=== PATIENT | male | born 1950 | race Caucasian/White ===

== ENCOUNTER → 2018-06-13 | Outpatient (CLI) | payer MEDICARE, OTHER ==
[2018-06-13 15:02] LABS: COLLAGEN EPINEPHRINE > 300 SECONDS (74-162)
[2018-06-13 15:21] LABS: COLLAGEN ADP 115 SECONDS (56-103)
== END ==
LOC: M LAB 14:07
DX: H02.429 Myogenic ptosis of unspecified eyelid (principal)
CPT/HCPCS: 36415

== ENCOUNTER → 2018-06-20 | Outpatient (CLI) | payer MEDICARE, OTHER ==
[2018-06-20 14:23] LABS: COLLAGEN EPINEPHRINE 175 SECONDS (74-162)
[2018-06-20 14:49] LABS: COLLAGEN ADP 117 SECONDS (56-103)
== END ==
LOC: M LAB 13:42
DX: H02.423 Myogenic ptosis of bilateral eyelids (principal)
CPT/HCPCS: 85576

== ENCOUNTER → 2021-02-04 | Outpatient (CLI) | payer MEDICARE, OTHER ==
[~2021-02-04] MED LIST: ALLO100T; AMLO1TAB25; ASPI81TA26 PO; ATOR40TA75; HYDR-3910; LISI20TA35; METO100T5; VITA-243 PO
== END ==
LOC: M LABSMTC 10:10
PROVIDERS: ATTEND Anesthesiology
DX: Z01.812 Encounter for preprocedural laboratory examination (principal); Z20.822 Contact with and (suspected) exposure to COVID-19
CPT/HCPCS: G0463; U0003

== ENCOUNTER 2021-02-09 10:18 | Day surgery (SDC) | payer MEDICARE, OTHER ==
[~2021-02-09] VITALS: Ht 175.3 cm; Wt 106.1 kg
[2021-02-09] MEDS ORDERED: NS 1,000 ML IV ONE (11:55)
[2021-02-09] MEDS ORDERED: propofoL 200 MG/20 ML VIAL As Ordered ONE (12:36)
[2021-02-09] MEDS ORDERED: LIDOCAINE 2% 100MG/5ML SDV (FOR ANES.) As Ordered ONE (12:36)
--- NOTE | 2021-02-09 12:46 | ROOR ---
Patient Name: Roberto Floyd Procedure Date: 02/09/2021 12:20 PM Date of : 1950 Age: 70 Room: [facility] Gender: Male Note Status: Finalized Procedure: Total Colonoscopy to Cecum Indications: High risk colon cancer surveillance: Personal history of colonic polyps Providers: Andrea Herrera MD Referring MD: ASHISH WEINER JR, MD Requesting Provider: Medicines: Monitored Anesthesia Care Complications: No immediate complications. Procedure: Pre-Anesthesia Assessment: - The heart rate, respiratory rate, oxygen saturations, blood pressure, adequacy of pulmonary ventilation, and response to care were monitored throughout the procedure. The Colonoscope was introduced through the anus and advanced to the cecum, identified by appendiceal orifice and ileocecal valve. The colonoscopy was performed without difficulty. The patient tolerated the procedure well. The quality of the bowel preparation was good. Findings: The perianal and digital rectal examinations were normal. Non-bleeding internal hemorrhoids were found during retroflexion. The hemorrhoids were small and Grade I (internal hemorrhoids that do not prolapse). Scattered small-mouthed diverticula were found in the recto-sigmoid colon, sigmoid colon and descending colon. The exam was otherwise without abnormality on direct and retroflexion views. Impression: - Non-bleeding internal hemorrhoids. - Diverticulosis in the recto-sigmoid colon, in the sigmoid colon and in the descending colon. - The examination was otherwise normal on direct and retroflexion views. - No specimens collected. - The exam was otherwise normal to the cecum. Recommendation: - Patient has a contact number available for emergencies. The signs and symptoms of potential delayed complications were discussed with the patient. Return to normal activities tomorrow. Written discharge instructions were provided to the patient. - High fiber diet. - Discharge patient to home. - Continue present medications. - Repeat colonoscopy in 5 years for surveillance. - Return to referring physician. - The findings and recommendations were discussed with the patient's family. Procedure Code(s): --- Professional --- G0105, Colorectal cancer screening; colonoscopy on individual at high risk Diagnosis Code(s): --- Professional --- Z86.010, Personal history of colonic polyps K64.0, First degree hemorrhoids K57.30, Diverticulosis of large intestine without perforation or abscess without bleeding CPT copyright 2019 [employer]. All rights reserved. The codes documented in this report are preliminary and upon hospital coder review may be revised to meet current compliance requirements. Andrea Herrera MD Andrea Herrera MD 02/09/2021 12:45:39 PM Electronically signed by Andrea Herrera MD Number of Addenda: 0 Note Initiated On: 02/09/2021 12:20 PM Estimated Blood Loss: Estimated blood loss: none.
[2021-02-09 13:00] VITALS: BP 130/78
== END 2021-02-09 13:02 | disposition home or self-care (01) ==
LOC: M OPP 10:18
PROVIDERS: ATTEND Internal Medicine Gastroenterology
DX: Z12.11 Encounter for screening for malignant neoplasm of colon (principal); Z86.010 Personal history of colon polyps; K57.30 Diverticulosis of large intestine without perforation or abscess without bleeding; K64.0 First degree hemorrhoids; G47.30 Sleep apnea, unspecified; Z79.82 Long term (current) use of aspirin; Z79.899 Other long term (current) drug therapy

== ENCOUNTER 2023-12-05 07:00 | Emergency (ER) | payer MEDICARE, OTHER ==
[~2023-12-05] VITALS: Ht 175.3 cm; Wt 109.2 kg
[~2023-12-05 07:00] MED LIST changes: -HYDR-3910; +HYDR25TA87
[2023-12-05] MEDS: NS 1,000 ML IV ONE (08:31)
[2023-12-05 08:36] LABS: BASO # 0.1 10^3/uL (0.0-0.2); BASO % 0.9 % (0.0-1.0); EOS # 0.2 10^3/uL (0.0-0.5); EOS % 2.1 % (0.0-3.0); HEMATOCRIT 44.2 % (42.0-52.0); HEMOGLOBIN 15.2 g/dl (13.5-17.5); LYMPH # 1.2 10^3/uL (1.5-5.0); LYMPH % 14.2 % (24.0-44.0); MEAN CORPUSCULAR HGB CONC 34.4 g/dl (32.0-36.5); MEAN CORPUSCULAR VOLUME 90.2 fl (80.0-96.0); MONO # 0.8 10^3/uL (0.0-0.8); MONO % 9.3 % (2.0-8.0); NEUTROPHILS # 6.3 10^3/uL (1.5-8.5); NEUTROPHILS % 73.1 % (36.0-66.0); PLATELET COUNT, AUTOMATED 253 10^3/uL (150-450); WHITE BLOOD COUNT 8.6 10^3/uL (4.0-10.0)
[2023-12-05 08:51] LABS: INR 1.12; PARTIAL THROMBOPLASTIN TIME 29.2 SECONDS (24.8-34.2); PROTHROMBIN TIME 14.1 SECONDS (12.5-14.5)
[2023-12-05] MEDS ORDERED: MED REC IN PROGRESS XX SCH (08:55)
[2023-12-05 09:01] LABS: LIPASE 82 U/L (12-53)
[2023-12-05 09:04] LABS: ALBUMIN 3.7 G/DL (3.2-5.2); ALKALINE PHOSPHATASE 148 U/L (46-116); ALT/SGPT < 9 U/L (7.0-40); AMYLASE 58 U/L (30-118); AST/SGOT 21 U/L (<34); BILIRUBIN,DIRECT 0.3 MG/DL (<0.4); BILIRUBIN,TOTAL 0.8 MG/DL (0.3-1.2); BLOOD UREA NITROGEN 21 MG/DL (9-23); CARBON DIOXIDE LEVEL 25 MMOL/L (20-31); CHLORIDE LEVEL 104 MMOL/L (98-107); GLOMERULAR FILTRATION RATE > 60.0 (>42); GLUCOSE, FASTING 115 MG/DL (74-106); POTASSIUM SERUM 3.6 MMOL/L (3.5-5.1); SODIUM LEVEL 138 MMOL/L (136-145); TOTAL PROTEIN 6.3 G/DL (5.7-8.2)
[2023-12-05] MEDS: KETOROLAC 30 MG/ML 1ML VIAL IV ONE (10:29)
[2023-12-05 10:30] VITALS: BP 138/63; TEMP 96.3
[2023-12-05 10:31] VITALS: O2SAT 97
== END 2023-12-05 10:45 | disposition home or self-care (01) ==
LOC: M ED 07:00
DX: R31.9 Hematuria, unspecified (principal); N20.1 Calculus of ureter; I10 Essential (primary) hypertension; N20.2 Calculus of kidney with calculus of ureter; Z79.899 Other long term (current) drug therapy; Z79.1 Long term (current) use of non-steroidal anti-inflammatories (NSAID)

== ENCOUNTER → 2024-01-23 | Outpatient (CLI) | payer MEDICARE, OTHER | LOC: M PLAIMG 07:50 | PROVIDERS: ATTEND Internal Medicine | DX: R74.8 Abnormal levels of other serum enzymes (principal) ==

== ENCOUNTER → 2024-01-24 | Outpatient (REF) | payer MEDICARE, OTHER ==
[2024-01-24 17:55] LABS: CA19-9 TUMOR MARKER,CARBOHYDRA 2095.8 U/ML (<35.0)
== END ==
LOC: M LAB REF 16:23
PROVIDERS: ATTEND Internal Medicine
DX: R16.0 Hepatomegaly, not elsewhere classified (principal); D49.0 Neoplasm of unspecified behavior of digestive system; R97.0 Elevated carcinoembryonic antigen [CEA]; R97.8 Other abnormal tumor markers

== ENCOUNTER 2024-01-26 08:47 | Day surgery (SDC) | payer MEDICARE, OTHER ==
[~2024-01-26] VITALS: Ht 177.8 cm; Wt 98.3 kg
[~2024-01-26 08:47] MED LIST changes: +LIDOCAINE 2% 100MG/5ML SDV (FOR ANES.) As Ordered ONE; +ONDANSETRON 4MG 2ML VIAL As Ordered ONE; +propofoL 200 MG/20 ML VIAL As Ordered ONE
[2024-01-26] MEDS: LR 1,000 ML IV SCH (09:35)
[2024-01-26] MEDS ORDERED: fentaNYL 100 MCG/2 ML INJECTION As Ordered ONE (10:27)
[2024-01-26] MEDS ORDERED: MIDAZOLAM INJ 2MG/2ML VIAL As Ordered ONE (10:27)
[2024-01-26] MEDS ORDERED: ACETAMINOPHEN 1000MG 100ML IV BAG As Ordered ONE (11:08)
[2024-01-26] MEDS: ceFAZolin SOD 2 GM in IV 1 EA IV ONE (11:08)
[2024-01-26] MEDS ORDERED: ePHEDrine SULFATE 25 MG/5 ML(5MG/ML) SYRINGE As Ordered ONE (11:29)
[2024-01-26] MEDS: ISOVUE-300 61% 100ML VIAL As Ordered ONE (12:12)
[2024-01-26] MEDS ORDERED: MORPHINE 2 MG/ML 1ML VIAL IV PRN (12:35)
[2024-01-26] MEDS ORDERED: ONDANSETRON 4MG 2ML VIAL IV PRN (12:35)
[2024-01-26] MEDS ORDERED: fentaNYL 100 MCG/2 ML INJECTION IV PRN (12:35)
[2024-01-26] MEDS ORDERED: oxyCODONE 5MG TAB PO PRN (12:35)
[2024-01-26 14:00] VITALS: BP 108/56; TEMP 97.6; O2SAT 97
== END 2024-01-26 14:08 | disposition home or self-care (01) ==
LOC: M SDC 08:47
PROVIDERS: ATTEND Urology
DX: N13.2 Hydronephrosis with renal and ureteral calculous obstruction (principal); I10 Essential (primary) hypertension; E78.00 Pure hypercholesterolemia, unspecified; R97.20 Elevated prostate specific antigen [PSA]; G47.30 Sleep apnea, unspecified; M10.9 Gout, unspecified; Z79.899 Other long term (current) drug therapy; Z95.1 Presence of aortocoronary bypass graft
CPT/HCPCS: 52356; 76000; 82365; C1769; C1894; C2617; J0131; J0690; J1100; J2250; J2405; J3010; Q9967

== ENCOUNTER → 2024-02-28 | Outpatient (CLI) | payer MEDICARE, OTHER ==
[~2024-02-28] MED LIST changes: +ALLO300T2; +DICL100G10; +FERR32TA; +LEVO1TAB39 PO; +LIDO1ADH10; -LIDOCAINE 2% 100MG/5ML SDV (FOR ANES.) As Ordered ONE; +METO50TA7 PO; +ONDA-84 PO; -ONDANSETRON 4MG 2ML VIAL As Ordered ONE; +OXYB5TAB14; +PANT40TA29; +TAMS1CAP17; -propofoL 200 MG/20 ML VIAL As Ordered ONE
== END ==
LOC: M ONCM 08:53
PROVIDERS: ATTEND Dietitian, Registered
DX: C25.9 Malignant neoplasm of pancreas, unspecified (principal); Z71.3 Dietary counseling and surveillance; Z68.28 Body mass index [BMI] 28.0-28.9, adult

== ENCOUNTER → 2024-03-12 | Outpatient (REF) ==
[2024-03-12 15:53] LABS: BASO # 0.1 10^3/uL (0.0-0.2); BASO % 0.2 % (0.0-1.0); EOS # 0.1 10^3/uL (0.0-0.5); EOS % 0.3 % (0.0-3.0); HEMATOCRIT 28.1 % (42.0-52.0); HEMOGLOBIN 8.8 g/dl (13.5-17.5); LYMPH % 2.7 % (24.0-44.0); MEAN CORPUSCULAR HEMOGLOBIN 27.8 pg (27.0-33.0); MEAN CORPUSCULAR HGB CONC 31.3 g/dl (32.0-36.5); MEAN CORPUSCULAR VOLUME 88.9 fl (80.0-96.0); MONO # 1.7 10^3/uL (0.0-0.8); MONO % 4.7 % (2.0-8.0); NEUTROPHILS # 32.3 10^3/uL (1.5-8.5); NEUTROPHILS % 89.2 % (36.0-66.0); PLATELET COUNT, AUTOMATED 440 10^3/uL (150-450); RED BLOOD COUNT 3.16 10^6/uL (4.30-6.10); WHITE BLOOD COUNT 36.2 10^3/uL (4.0-10.0)
[2024-03-12 16:14] LABS: BLOOD UREA NITROGEN 31 MG/DL (9-23); CALCIUM LEVEL 8.9 MG/DL (8.3-10.6); CARBON DIOXIDE LEVEL 18 MMOL/L (20-31); CHLORIDE LEVEL 103 MMOL/L (98-107); CREATININE FOR GFR 1.06 MG/DL (0.70-1.30); GLOMERULAR FILTRATION RATE > 60.0 (>42); GLUCOSE, FASTING 156 MG/DL (74-106); POTASSIUM SERUM 4.6 MMOL/L (3.5-5.1); SODIUM LEVEL 131 MMOL/L (136-145)
== END ==
LOC: SKLAB2 14:51
PROVIDERS: ATTEND Internal Medicine
DX: R06.02 Shortness of breath (principal); Z98.890 Other specified postprocedural states

== ENCOUNTER → 2024-03-14 | Outpatient (REF) ==
[~2024-03-14] MED LIST changes: +ACET-910 PO; -ALLO300T2; +ALLO300T2 PO; -FERR32TA; +FERR32TA PO; +LACT237L59 PO; -LIDO1ADH10; +LIDO1ADH10 TOP; +MILKSUS3 PO; -OXYB5TAB14; +OXYB5TAB14 PO; -TAMS1CAP17; +TAMS1CAP17 PO
[2024-03-14 13:05] LABS: BASO # 0.1 10^3/uL (0.0-0.2); BASO % 0.2 % (0.0-1.0); EOS # 0.1 10^3/uL (0.0-0.5); EOS % 0.2 % (0.0-3.0); HEMATOCRIT 26.6 % (42.0-52.0); HEMOGLOBIN 8.4 g/dl (13.5-17.5); LYMPH # 1.1 10^3/uL (1.5-5.0); MEAN CORPUSCULAR HEMOGLOBIN 27.5 pg (27.0-33.0); MEAN CORPUSCULAR HGB CONC 31.6 g/dl (32.0-36.5); MEAN CORPUSCULAR VOLUME 87.2 fl (80.0-96.0); MONO # 1.7 10^3/uL (0.0-0.8); MONO % 4.8 % (2.0-8.0); NEUTROPHILS # 30.7 10^3/uL (1.5-8.5); NEUTROPHILS % 88.3 % (36.0-66.0); PLATELET COUNT, AUTOMATED 400 10^3/uL (150-450); RED BLOOD COUNT 3.05 10^6/uL (4.30-6.10)
[2024-03-14 13:16] LABS: WHITE BLOOD COUNT 34.7 10^3/uL (4.0-10.0)
[2024-03-14 14:25] LABS: ALBUMIN 1.6 G/DL (3.2-5.2); ALKALINE PHOSPHATASE 1078 U/L (46-116); ALT/SGPT 81 U/L (7.0-40); AST/SGOT 107 U/L (<34); BLOOD UREA NITROGEN 39 MG/DL (9-23); CALCIUM LEVEL 9.2 MG/DL (8.3-10.6); CARBON DIOXIDE LEVEL 19 MMOL/L (20-31); CHLORIDE LEVEL 102 MMOL/L (98-107); CREATININE FOR GFR 1.23 MG/DL (0.70-1.30); GLOMERULAR FILTRATION RATE > 60.0 (>42); GLUCOSE, FASTING 128 MG/DL (74-106); POTASSIUM SERUM 5.1 MMOL/L (3.5-5.1); SODIUM LEVEL 133 MMOL/L (136-145); TOTAL PROTEIN 4.9 G/DL (5.7-8.2)
== END ==
LOC: SKLAB2 12:06
PROVIDERS: ATTEND Internal Medicine
DX: E87.1 Hypo-osmolality and hyponatremia (principal); D72.829 Elevated white blood cell count, unspecified

== ENCOUNTER 2024-03-15 11:28 | Inpatient (IN) | payer MEDICARE, OTHER ==
[2024-03-15] VITALS (13 sets, daily range): BP systolic 73–114; BP diastolic 33–62; TEMP 96.9–98.2; O2SAT 97–99
[~2024-03-15] VITALS: Ht 177.8 cm; Wt 100.1 kg
[~2024-03-15 11:28] MED LIST changes: -ACET-910 PO; -LACT237L59 PO; -MILKSUS3 PO
[2024-03-15] MEDS ORDERED: ISOVUE-370 76% 100ML VIAL As Ordered ONE (11:49)
[2024-03-15] MEDS: NS 3,100 ML in IV 1 EA IV ONE (11:50)
[2024-03-15] MEDS ORDERED: ONDA-84 PO (12:55)
[2024-03-15] MEDS ORDERED: LACT237L59 PO (12:55)
[2024-03-15] MEDS ORDERED: MILKSUS3 PO (12:55)
[2024-03-15] MEDS ORDERED: ACET-910 PO (12:55)
[2024-03-15] MEDS ORDERED: HOME MED LIST COMPLETE! XX SCH (13:00)
[2024-03-15 13:06] LABS: BASO # 0.1 10^3/uL (0.0-0.2); BASO % 0.3 % (0.0-1.0); EOS % 0.1 % (0.0-3.0); HEMATOCRIT 27.8 % (42.0-52.0); HEMOGLOBIN 8.8 g/dl (13.5-17.5); LYMPH # 0.9 10^3/uL (1.5-5.0); LYMPH % 2.6 % (24.0-44.0); MEAN CORPUSCULAR HEMOGLOBIN 27.4 pg (27.0-33.0); MEAN CORPUSCULAR HGB CONC 31.7 g/dl (32.0-36.5); MEAN CORPUSCULAR VOLUME 86.6 fl (80.0-96.0); MONO # 1.3 10^3/uL (0.0-0.8); MONO % 3.8 % (2.0-8.0); NEUTROPHILS # 30.5 10^3/uL (1.5-8.5); PLATELET COUNT, AUTOMATED 411 10^3/uL (150-450); RED BLOOD COUNT 3.21 10^6/uL (4.30-6.10)
[2024-03-15 13:13] LABS: WHITE BLOOD COUNT 33.6 10^3/uL (4.0-10.0)
[2024-03-15] MEDS: cefTRIAXone SOD 2 GM in D5W MINI-BAG PLUS 50 ML IV ONE (13:18)
[2024-03-15 13:57] LABS: INR 2.47; PARTIAL THROMBOPLASTIN TIME 35.2 SECONDS (24.8-34.2); PROTHROMBIN TIME 25.9 SECONDS (12.5-14.5)
[2024-03-15 13:59] LABS: ALBUMIN 1.7 G/DL (3.2-5.2); BILIRUBIN,DIRECT 0.5 MG/DL (<0.4); BILIRUBIN,TOTAL 0.9 MG/DL (0.3-1.2); CALCIUM LEVEL 8.8 MG/DL (8.3-10.6); CREATININE FOR GFR 1.36 MG/DL (0.70-1.30); GLOMERULAR FILTRATION RATE 54.4 (>42); POTASSIUM SERUM 5.8 MMOL/L (3.5-5.1); TOTAL PROTEIN 5.1 G/DL (5.7-8.2)
[2024-03-15] MEDS ORDERED: PIPERACILLIN/TAZOBACTAM SOD 3.375 GM in D5W MINI-BAG PLUS 50 ML IV SCH (14:35)
[2024-03-15] MEDS: PIPERACILLIN/TAZOBACTAM SOD 4.5 GM in D5W MINI-BAG PLUS 50 ML IV SCH (15:42)
[2024-03-15 16:05] LABS: PROCALCITONIN 1.1 ng/ml
[2024-03-15] MEDS ORDERED: ACETAMINOPHEN TAB 650MG DOSE (2X325MG) PO PRN (16:10)
[2024-03-15] MEDS ORDERED: MOM 30ML SUSPENSION UDC PO PRN (16:25)
[2024-03-15] MEDS ORDERED: ONDANSETRON 4MG 2ML VIAL IV PRN (16:25)
[2024-03-15] MEDS: NS 1,000 ML IV SCH ×2 (17:48→18:15)
[2024-03-15] MEDS: NS 500 ML IV ONE (17:56)
[2024-03-15] MEDS: DOXYCYCLINE HYCLATE 100 MG in D5W MINI-BAG PLUS 100 ML IV SCH (18:06)
[2024-03-15] MEDS: PANTOPRAZOLE 40MG VIAL IV SCH (18:06)
[2024-03-15] MEDS: ASPIRIN 81MG ENTERIC TABLET PO SCH (18:07)
[2024-03-15] MEDS: ATORVASTATIN 20 MG TAB PO SCH (18:07)
[2024-03-15 19:46] LABS: ALBUMIN 1.4 G/DL (3.2-5.2); BILIRUBIN,TOTAL 0.6 MG/DL (0.3-1.2); CALCIUM LEVEL 8.5 MG/DL (8.3-10.6); CREATININE FOR GFR 1.31 MG/DL (0.70-1.30); GLOMERULAR FILTRATION RATE 56.8 (>42); TOTAL PROTEIN 4.5 G/DL (5.7-8.2)
[2024-03-15] MEDS: TAMSULOSIN 0.4 MG CAP PO SCH (20:11)
[2024-03-15] MEDS: oxyBUTYnin 5 MG TAB PO SCH (20:11)
[2024-03-15 22:06] LABS: VENOUS BASE EXCESS -5.8 (-2.0-2.0); VENOUS HCO3 19.3 MMOL/L (23.0-27.0); VENOUS O2 SATURATION 77.1 % (60.0-80.0); VENOUS PARTIAL PRESSURE CO2 35.8 mmHg (38.0-50.0); VENOUS PARTIAL PRESSURE O2 47.5 mmHg (30.0-50.0); VENOUS PH 7.349 UNITS (7.330-7.430); VENOUS STANDARD HCO3 19.4 MMOL/L; VENOUS TOTAL CO2 20.4 MMOL/L (24.0-28.0)
[2024-03-16 04:34] VITALS: BP 102/49; TEMP 98.1; O2SAT 97
[2024-03-16 07:22] LABS: HEMATOCRIT 24.1 % (42.0-52.0); HEMOGLOBIN 7.7 g/dl (13.5-17.5); MEAN CORPUSCULAR HEMOGLOBIN 27.4 pg (27.0-33.0); MEAN CORPUSCULAR VOLUME 85.8 fl (80.0-96.0); PLATELET COUNT, AUTOMATED 328 10^3/uL (150-450); RED BLOOD COUNT 2.81 10^6/uL (4.30-6.10); WHITE BLOOD COUNT 29.8 10^3/uL (4.0-10.0)
[2024-03-16 08:00] VITALS: BP 125/58; TEMP 97.7; O2SAT 98
[2024-03-16 08:31] LABS: ALBUMIN 1.6 G/DL (3.2-5.2); ALKALINE PHOSPHATASE 1098 U/L (46-116); ALT/SGPT 79 U/L (7.0-40); AST/SGOT 126 U/L (<34); BILIRUBIN,TOTAL 0.9 MG/DL (0.3-1.2); BLOOD UREA NITROGEN 41 MG/DL (9-23); CALCIUM LEVEL 8.7 MG/DL (8.3-10.6); CARBON DIOXIDE LEVEL 19 MMOL/L (20-31); CHLORIDE LEVEL 108 MMOL/L (98-107); CREATININE FOR GFR 1.23 MG/DL (0.70-1.30); GLOMERULAR FILTRATION RATE > 60.0 (>42); GLUCOSE, FASTING 116 MG/DL (74-106); POTASSIUM SERUM 4.3 MMOL/L (3.5-5.1); SODIUM LEVEL 137 MMOL/L (136-145); TOTAL PROTEIN 4.7 G/DL (5.7-8.2)
[2024-03-16] MEDS: ENOXAPARIN 40MG/0.4ML SYRINGE (J1650 PER 10MG) SC SCH (08:50)
[2024-03-16] MEDS: allopurinoL 300 MG TAB PO SCH (08:52)
[2024-03-16 11:50] VITALS: BP 124/58; TEMP 97.7; O2SAT 97
[2024-03-16 16:20] VITALS: BP 125/65; TEMP 98.1; O2SAT 99
[2024-03-16 20:17] VITALS: BP 128/64; TEMP 98.4; O2SAT 97
[2024-03-17 04:03] VITALS: BP 141/72; TEMP 98.2; O2SAT 97
[2024-03-17 04:55] LABS: BASO # 0.1 10^3/uL (0.0-0.2); BASO % 0.2 % (0.0-1.0); EOS # 0.3 10^3/uL (0.0-0.5); EOS % 0.9 % (0.0-3.0); HEMATOCRIT 25.7 % (42.0-52.0); LYMPH # 1.1 10^3/uL (1.5-5.0); LYMPH % 3.6 % (24.0-44.0); MEAN CORPUSCULAR HGB CONC 31.1 g/dl (32.0-36.5); MEAN CORPUSCULAR VOLUME 86.8 fl (80.0-96.0); MONO # 1.8 10^3/uL (0.0-0.8); MONO % 5.7 % (2.0-8.0); PLATELET COUNT, AUTOMATED 345 10^3/uL (150-450); RED BLOOD COUNT 2.96 10^6/uL (4.30-6.10)
[2024-03-17 05:06] LABS: WHITE BLOOD COUNT 30.7 10^3/uL (4.0-10.0)
[2024-03-17 05:20] LABS: PROCALCITONIN 0.77 ng/ml
[2024-03-17] MEDS: NS 500 ML IV ONE (05:44)
[2024-03-17 05:47] LABS: ALBUMIN 1.5 G/DL (3.2-5.2); ALKALINE PHOSPHATASE 1154 U/L (46-116); ALT/SGPT 73 U/L (7.0-40); AST/SGOT 121 U/L (<34); BLOOD UREA NITROGEN 32 MG/DL (9-23); CARBON DIOXIDE LEVEL 20 MMOL/L (20-31); CHLORIDE LEVEL 109 MMOL/L (98-107); CREATININE FOR GFR 1.18 MG/DL (0.70-1.30); GLOMERULAR FILTRATION RATE > 60.0 (>42); GLUCOSE, FASTING 104 MG/DL (74-106); MAGNESIUM LEVEL 1.8 MG/DL (1.8-2.4); POTASSIUM SERUM 4.2 MMOL/L (3.5-5.1); SODIUM LEVEL 137 MMOL/L (136-145); TOTAL PROTEIN 4.5 G/DL (5.7-8.2)
[2024-03-17 08:00] VITALS: BP 134/68; TEMP 97.9; O2SAT 96
[2024-03-17] MEDS ORDERED: LORazepam 2 MG/ML 1ML VIAL IV PRN (11:15)
[2024-03-17] MEDS ORDERED: BISACODYL 10MG SUPP PR PRN (11:15)
[2024-03-17] MEDS ORDERED: ACETAMINOPHEN 650MG SUPP PR PRN (11:15)
[2024-03-17] MEDS ORDERED: ONDANSETRON 4MG 2ML VIAL IV PRN (11:15)
[2024-03-17] MEDS ORDERED: LORazepam 2 MG/ML 1ML VIAL SL PRN (11:40)
[2024-03-17] MEDS: MORPHINE 10MG/0.5ML ORAL CONCENTRATE SOLUTION U/D SL PRN (18:22)
[2024-03-19] MEDS: ACETAMINOPHEN TAB 650MG DOSE (2X325MG) PO PRN (16:14)
[2024-03-21] MEDS: LORazepam 1 MG TAB SL PRN (18:21)
[2024-03-22] MEDS: SCOPOLAMINE 1MG TRANSDERMAL PATCH TOP PRN (09:22)
[2024-03-22] MEDS: ONDANSETRON 4MG TAB PO PRN (09:22)
[2024-03-22] MEDS ORDERED: ONDANSETRON 4MG 2ML VIAL IV PRN (09:40)
[2024-03-22] MEDS: MORPHINE 10MG/0.5ML ORAL CONCENTRATE SOLUTION U/D SL PRN (10:15)
[2024-03-22] MEDS: ONDANSETRON 4MG ORAL DISINTEGRATING TAB PO PRN (10:35)
[2024-03-22] MEDS: ATROPINE SULFATE 1% OPHTH SOLN 2ML BTL SL PRN (10:35)
[2024-03-22] MEDS: LORazepam 1 MG TAB SL PRN (11:10)
[2024-03-22] MEDS ORDERED: MORPHINE 10MG/0.5ML ORAL CONCENTRATE SOLUTION U/D SL PRN (13:40)
[2024-03-22] MEDS ORDERED: LORazepam 2 MG/ML 1ML VIAL SL PRN (13:40)
[2024-03-22] MEDS: MORPHINE 10MG/0.5ML ORAL CONCENTRATE SOLUTION U/D SL STA (13:48)
== END 2024-03-22 16:05 | disposition expired | DRG 871 ==
LOC: EDBD 11:28 → M ED 11:28 → M ED INP 16:07 → M MSPAV 17:33
PROVIDERS: ADMIT Hospitalist; ATTEND Internal Medicine
PROC: B246ZZZ Ultrasonography of Right and Left Heart (ICD-10-PCS; principal; 2024-03-17)
DX: A41.9 Sepsis, unspecified organism (principal); I63.9 Cerebral infarction, unspecified; K72.00 Acute and subacute hepatic failure without coma; G93.40 Encephalopathy, unspecified; C25.9 Malignant neoplasm of pancreas, unspecified; C78.7 Secondary malignant neoplasm of liver and intrahepatic bile duct; C78.00 Secondary malignant neoplasm of unspecified lung; G81.94 Hemiplegia, unspecified affecting left nondominant side; I74.9 Embolism and thrombosis of unspecified artery; D68.9 Coagulation defect, unspecified; I10 Essential (primary) hypertension; M10.9 Gout, unspecified; N40.0 Benign prostatic hyperplasia without lower urinary tract symptoms; R13.10 Dysphagia, unspecified; E78.00 Pure hypercholesterolemia, unspecified; I25.10 Atherosclerotic heart disease of native coronary artery without angina pectoris; G47.33 Obstructive sleep apnea (adult) (pediatric); Z96.653 Presence of artificial knee joint, bilateral; F17.220 Nicotine dependence, chewing tobacco, uncomplicated; I36.1 Nonrheumatic tricuspid (valve) insufficiency; Z86.718 Personal history of other venous thrombosis and embolism; Z95.828 Presence of other vascular implants and grafts; Z79.891 Long term (current) use of opiate analgesic; Z79.899 Other long term (current) drug therapy; Z88.8 Allergy status to other drugs, medicaments and biological substances; Z95.5 Presence of coronary angioplasty implant and graft; Z66 Do not resuscitate